=== PATIENT | male | born 1935 | race Caucasian/White ===

== ENCOUNTER 2017-04-16 15:54 | Observation (INO) ==
[2017-04-16] MEDS ORDERED: AZITHROMYCIN 500 MG in DEXTROSE 5% IN WATER 250 ML IV ONE (16:53)
--- NOTE | 2017-04-16 16:55 | Emergency Department Note ---
Weakness HPI - General Source: patient Mode of arrival: ambulatory Limitations: no limitations - History of Present Illness Associated symptoms: Reports: fever/chills, headaches, loss of appetite, myalgias, shortness of breath. Denies: chest pain, confusion, dark stools, diaphoresis, dysuria, nausea/vomiting, rash, syncope <Cecy Hu - Last Filed: 04/16/17 16:53> <German Cifuentes - Last Filed: 04/16/17 20:34> - General Chief complaint: Weakness Stated complaint: cough Time Seen by Provider: 04/16/17 16:07 - History of Present Illness HPI Narrative: 81-year-old male presents with a 2-1/2 day history of fever, chills, weakness, generally feeling poor, cough and shortness of breath. [facility] to [facility] today. They thought he had a bronchitis and were discharged him home with some antibiotics. However when he went to discharge him he said he was too weak to even go get a x-ray and so they were concerned and sent him here. His oxygen saturations are 87% on room air on his arrival. He is mildly tachypneic with a rate of 28 on arrival. He states he has been like this since sudden onset 2-1/ 2 days ago. No sore throat. No ear pain. Does feel like he has a mild headache and feels like he has had chills. Unknown fever. No nausea, vomiting , or diarrhea. No pedal edema. No home treatments (Cecy Hu) - Related Data Previous Rx's Medication Instructions Recorded Azithromycin [Zithromax] 250 mg PO DAILY #6 tab 03/23/17 Allergies Allergy/AdvReac Type Severity Reaction Status Date / Time FLU VACCINE Allergy Severe VERY SICK Uncoded 07/29/14 06:58 GRAIN Allergy Intermediate RASH, Uncoded 07/29/14 06:58 RUNNY NOSE NO KNOWN DRUG ALLERGIES Allergy Unknown NO KNOWN Uncoded 07/29/14 06:58 ALLERGIES Review of Systems All systems ED: reviewed and negative except as stated. <Cecy Hu - Last Filed: 04/16/17 16:53> Past Medical History - Past Medical History Source: other (She has a poor historian. We are trying to obtain old records from the [facility]) - Social History smoking status: Former smoker Alcohol use: Reports: None Drug use: Reports: none <Cecy Hu - Last Filed: 04/16/17 16:53> Physical Exam Limitations: no limitations General appearance: alert, in no apparent distress Head: atraumatic, normocephalic, normal inspection Eye: Present: normal appearance. Absent: conjunctival injection ENT: normal exam, normal oropharynx, mucous membranes moist, TM's normal bilaterally, normal external ear exam Neck: Present: normal inspection, trachea midline. Absent: tenderness, lymphadenopathy Chest: Present: normal inspection, symmetric chest wall rise Respiratory: Present: respiratory distress (Tachypneic with a rate of 28. No accessory muscle use.), wheezes (Faint expiratory wheezes in the bases bilaterally particularly worse on the right). Absent: accessory muscle use Cardiovascular: Present: regular rate, normal heart sounds Abdominal: Present: soft, normal bowel sounds. Absent: distention, tenderness Extremities: Present: normal inspection, normal capillary refill. Absent: pedal edema Neurological: Present: alert, oriented X3 Psychiatric: Present: normal affect, normal mood Skin: Present: warm, dry, intact, normal color <Cecy Hu - Last Filed: 04/16/17 16:53> Vital Signs Temperature 97.1 F 04/16/17 15:55 Pulse Rate 96 H 04/16/17 15:55 Respiratory Rate 22 04/16/17 15:55 Blood Pressure 141/83 04/16/17 15:55 Pulse Oximetry (%) 87 L 04/16/17 15:55 Temperature 99.2 F H 04/16/17 19:10 Pulse Rate 64 04/16/17 20:06 Respiratory Rate 18 04/16/17 20:06 Blood Pressure 90/71 04/16/17 19:10 Pulse Oximetry (%) 93 04/16/17 19:10 Weakness - Lab Data Result diagrams: 04/16/17 16:21 04/16/17 16:21 <MagdalenaCecy peralta - Last Filed: 04/16/17 16:53> - Lab Data Result diagrams: 04/16/17 16:21 04/16/17 16:21 <German Cifuentes - Last Filed: 04/16/17 20:34> - Lab Data Lab Results 0204/16/17 04/16/17 Range/Units 16:21 16:21 16:21 WBC 6.1 (4.5-11.0) K/mcL RBC 4.99 (4.50-5.90) M/mcL Hgb 15.9 (13.5-16.5) g/dL Hct 46.5 (41.0-55.0) % MCV 93.2 (80.0-100.0) fL MCH 32.0 (26.0-34.0) pg MCHC 34.3 (31.0-36.0) g/dL RDW 14.6 H (11.5-14.5) % Plt Count 137 L (140-440) K/mcL MPV 9.7 (7.4-10.4) fL Gran % 71.3 (38.0-78.0) % Lymph % (Auto) 17.7 (15.5-49.0) % Trinity % (Auto) 10.3 (1.0-12.0) % Eos % (Auto) 0.3 (0.0-7.0) % Baso % (Auto) 0.4 (0.0-2.0) % Gran # 4.4 (1.8-8.0) K/mcL Lymph # (Auto) 1.1 L (1.5-4.8) K/mcL Trinity # (Auto) 0.6 (0.1-0.9) K/mcL Eos # (Auto) 0 (0.0-0.7) K/mcL Baso # (Auto) 0 (0.0-0.3) K/mcL VBG Lactic Acid 1.6 (0.5-2.2) mmol/L Sodium 134 (133-145) mmol/L Potassium 4.1 (3.3-5.1) mmol/L Chloride 93 L (96-108) mmol/L Carbon Dioxide 25 (22-30) mmol/L Anion Gap 16.0 (8-16) BUN 13 (8-23) mg/dl Creatinine 1.0 (0.7-1.2) mg/dl GFR Calculation 70 Glucose 108 H (70-105) mg/dL Calcium 8.9 (8.6-10.4) mg/dl Total Bilirubin 0.6 (0.0-1.0) mg/dL AST 30 (0-37) U/l ALT 19 (0-40) U/l Alkaline Phosphatase 72 (39-117) U/L Troponin T (0-0.03) ng/ml Total Protein 7.5 (5.9-8.4) gm/dL Albumin 4.3 (3.2-5.2) gm/dL Globulin 3.2 (2.2-3.7) gm/dL Albumin/Globulin Ratio 1.3 (1.0-2.3) Procalcitonin (<0.10) ng/mL Influenza A (Rapid) Influenza B (Rapid) 04/16/17 04/16/17 04/16/17 Range/Units 16:21 17:48 18:35 WBC (4.5-11.0) K/mcL RBC (4.50-5.90) M/mcL Hgb (13.5-16.5) g/dL Hct (41.0-55.0) % MCV (80.0-100.0) fL MCH (26.0-34.0) pg MCHC (31.0-36.0) g/dL RDW (11.5-14.5) % Plt Count (140-440) K/mcL MPV (7.4-10.4) fL Gran % (38.0-78.0) % Lymph % (Auto) (15.5-49.0) % Trinity % (Auto) (1.0-12.0) % Eos % (Auto) (0.0-7.0) % Baso % (Auto) (0.0-2.0) % Gran # (1.8-8.0) K/mcL Lymph # (Auto) (1.5-4.8) K/mcL Trinity # (Auto) (0.1-0.9) K/mcL Eos # (Auto) (0.0-0.7) K/mcL Baso # (Auto) (0.0-0.3) K/mcL VBG Lactic Acid (0.5-2.2) mmol/L Sodium (133-145) mmol/L Potassium (3.3-5.1) mmol/L Chloride (96-108) mmol/L Carbon Dioxide (22-30) mmol/L Anion Gap (8-16) BUN (8-23) mg/dl Creatinine (0.7-1.2) mg/dl GFR Calculation Glucose (70-105) mg/dL Calcium (8.6-10.4) mg/dl Total Bilirubin (0.0-1.0) mg/dL AST (0-37) U/l ALT (0-40) U/l Alkaline Phosphatase (39-117) U/L Troponin T < 0.01 (0-0.03) ng/ml Total Protein (5.9-8.4) gm/dL Albumin (3.2-5.2) gm/dL Globulin (2.2-3.7) gm/dL Albumin/Globulin Ratio (1.0-2.3) Procalcitonin < 0.10 (<0.10) ng/mL Influenza A (Rapid) Presumed negative Influenza B (Rapid) Presumed negative Disposition <Cecy Hu - Last Filed: 04/16/17 16:53> Pt seen by CARE TECH/PA only: Yes <German Cifuentes - Last Filed: 04/16/17 20:34> Disposition: Xfer As Inpt ([facility]) Condition: Fair
[2017-04-16 17:02] LABS: Basophils # (Auto) 0 K/mcL (0.0-0.3); Basophils % (Auto) 0.4 % (0.0-2.0); Eosinophils # (Auto) 0 K/mcL (0.0-0.7); Eosinophils % (Auto) 0.3 % (0.0-7.0); Granulocytes % (Auto) 71.3 % (38.0-78.0); Lymphocytes # (Auto) 1.1 K/mcL (1.5-4.8); Lymphocytes % (Auto) 17.7 % (15.5-49.0); Mean Cell Volume 93.2 fL (80.0-100.0); Mean Corpuscular HGB Conc 34.3 g/dL (31.0-36.0); Monocytes # (Auto) 0.6 K/mcL (0.1-0.9); Monocytes % (Auto) 10.3 % (1.0-12.0); Platelet Count 137 K/mcL (140-440); RBC 4.99 M/mcL (4.50-5.90); Red Cell Distribution Width 14.6 % (11.5-14.5)
[2017-04-16] MEDS ORDERED: IPRATROPIUM/ALBUTEROL 3 ML AMPUL.NEB NEB ONE ×2 (17:10→20:01)
--- NOTE | 2017-04-16 17:12 | XRay Report ---
HISTORY: Reason for Exam:sob, weakness FINDINGS: there is a subtle lacelike pattern in the lung parenchyma bilaterally. This is most apparent superior and lateral to the right upper hilum. This has become more apparent since 12/24/11. This is probably due to mild pulmonary fibrosis and COPD. The lungs are not hyperinflated. There is no evidence of pneumonia, mass or congestive heart failure. The heart size is normal. IMPRESSION: Mild pulmonary fibrosis Interpreted and Authenticated by: Greg Orozco 04/16/17
[2017-04-16] MEDS ORDERED: ACETAMINOPHEN 325 MG TABLET PO ONE (17:19)
[2017-04-16 17:24] LABS: ALT/SGPT 19 U/l (0-40); Albumin 4.3 gm/dL (3.2-5.2); Albumin/Globulin Ratio 1.3 (1.0-2.3); Alkaline Phosphatase 72 U/L (39-117); Blood Urea Nitrogen 13 mg/dl (8-23)
[2017-04-16] MEDS ORDERED: LACTATED RINGERS 1,000 ML IV ONE ×3 (18:22→19:10)
[2017-04-16] MEDS ORDERED: NALOXONE HCL 0.4 MG/ML VIAL IV PRN (19:10)
[2017-04-16] MEDS ORDERED: ACETAMINOPHEN 325 MG TABLET PO PRN (19:10)
[2017-04-16] MEDS ORDERED: oxyCODONE/APAP 5/325MG TABLET PO PRN (19:10)
[2017-04-16] MEDS ORDERED: ONDANSETRON 4 MG/2 ML VIAL IV PRN (19:10)
[2017-04-16] MEDS ORDERED: LEVOFLOXACIN 750 MG/150 ML BAG IV ONE (19:45)
--- NOTE | 2017-04-16 19:52 | Internal Med History&Physical ---
Medical - H&P: HPI Patient information: Note initiated : 04/16/17 at 7:42 pm Service Date, if different from initiated Date: [] Patient: Michael Rodney a 81 y/o M admitted on 04/16/17 for cough. Chief Complaint: [] History of present illness: Mr. Rodney is a 81 year old Male with h/o asthma, presnts to the ER from [facility] for 2 day history of not feeling well, cough, shortness of breath and fatigue. The patient note he was feeling that he was coming down with something 2 days ago, thinks he may have caught it from the store where people around him were sick yesterday, he was feeling weak and tired, some dizziness, not feeling quite him self, he had shortness of breath and wheezing. He notes cough is with mild sputum production, whitish yellow, no blood, worse when he lies down. The patients condition worsened and he was seen at the [place] [facility] today, diagnosed with bronchitis and prescribed antibiotics. He was unfortunately too weak and was therefore sent to the ER for further evaluation The patient patient in the ER was noted to be hypoxic on presentation. labs normal, Chest x ray neg for pna, flu test neg, his had low bp, which was responding to fluids. Normal lactate. The patient was wheezing. The patient is being admitted to the hospital for further management. He denies headache, no dizziness, no hearing issues, no visual changes, no swallowing difficulities,no chest pain. he had mild nausea, no vomiting no abdominal pain, no gu symptoms, no skin rash, depression or joint pain or swelling. no edema feet. All systems: reviewed and no additional remarkable complaints except as stated ( as per HPI) Medical - H&P: PMH Medical history: HLD CVA Hypothyroidism Surgical history: cataract sx Pertinent family history: lost 2 sons to brain cancer. Social history: ex smoker many decades ago no etoh no thc Medical - H&P: Meds Home Medications Medication Instructions Recorded Confirmed Type Azithromycin [Zithromax] 250 mg PO DAILY #6 tab 03/23/17 Rx Allergies Allergy/AdvReac Type Severity Reaction Status Date / Time FLU VACCINE Allergy Severe VERY SICK Uncoded 07/29/14 06:58 GRAIN Allergy Intermediate RASH, Uncoded 07/29/14 06:58 RUNNY NOSE NO KNOWN DRUG ALLERGIES Allergy Unknown NO KNOWN Uncoded 07/29/14 06:58 ALLERGIES Medical - H&P: Exam - Constitutional Vitals: Temp Pulse Resp BP Pulse Ox 99.2 F H 74 13 90/71 93 04/16/17 19:10 04/16/17 19:10 04/16/17 19:10 04/16/17 19:10 04/16/17 19:10 Exam: GENERAL: The patient is a well-developed, well-nourished in no apparent distress. Is alert and oriented x3. VITAL SIGNS: Reviewed and as noted elsewhere. HEENT: Head is normocephalic and atraumatic. Extraocular muscles are intact. Pupils are equal, round, and reactive to light. Nares appeared normal. Mouth appears any without lesions. Mucous membranes are moist. NECK: Normal to inspection, Supple, No lymphadenopathy or thyromegaly. LUNGS: Air entry equal on both sides, suzy exp wheezing, no crackles, no rhonchi. HEART: Regular rate and rhythm normal, S1 and S2 heard, no Gallop, S3 or Rub Noted, No Gross murmur heard. ABDOMEN: Soft, nontender, and nondistended. Positive bowel sounds. No hepatosplenomegaly was noted. EXTREMITIES: No cyanosis, clubbing, rash, lesions or edema. NEUROLOGIC: Cranial nerves II through XII are grossly intact. Motor and Sensory System Grossly Intact PSYCHIATRIC: Normal affect, Normal Mood. Appropriate Behavior. SKIN: No ulceration or wounds noted, No jaundice, No rash noted. Medical - H&P: Reslt - Labs CBC & Chem 7: 04/16/17 16:21 04/16/17 16:21 Labs: Short CBC 04/16/17 Range/Units 16:21 WBC 6.1 (4.5-11.0) K/mcL Hgb 15.9 (13.5-16.5) g/dL Hct 46.5 (41.0-55.0) % Plt Count 137 L (140-440) K/mcL BMP 04/16/17 16:21 Sodium 134 Potassium 4.1 Chloride 93 L Carbon Dioxide 25 BUN 13 Creatinine 1.0 Glucose 108 H Calcium 8.9 Cardiac Enzymes 04/16/17 Range/Units 16:21 Troponin T < 0.01 (0-0.03) ng/ml Liver Function 04/16/17 Range/Units 16:21 Total Bilirubin 0.6 (0.0-1.0) mg/dL AST 30 (0-37) U/l ALT 19 (0-40) U/l Alkaline Phosphatase 72 (39-117) U/L Albumin 4.3 (3.2-5.2) gm/dL Medical - H&P: A/P - Narrative A/P Narrative: A/P Acute bronchitis: Acute hypoxic resp failure Acute asthma exacerbation Hypotension Influenza possible HLD Hypothyroidism Plan Admit to tele Oxygen to keep osat > 90 IV fluids, try to keep MAP > 65, Levophed if needed DUonebs and IV steroids for asthma trend labs, check procalcitonin. tamiflu resume levothyroxine DVT hep sq Diet cardiac Full code.
[2017-04-16] MEDS: IPRATROPIUM/ALBUTEROL 3 ML AMPUL.NEB NEB SCH ×2 (20:05→23:18)
[2017-04-16] MEDS: HEPARIN 5,000 UNIT/ML VIAL SQ SCH (20:26)
[2017-04-16] MEDS: methylPREDNISolone SOD SUCC 125 MG/2 ML VIAL IV SCH ×2 (20:26→22:26)
[2017-04-16] MEDS: FAMOTIDINE 20 MG TABLET PO SCH (20:26)
[2017-04-16] MEDS: OSELTAMIVIR PHOSPHATE 75 MG CAPSULE PO SCH (20:27)
--- NOTE | 2017-04-16 20:39 | Emergency Department Note ---
ED Note Addendum Note Addendum: Report was received from Cecy Hu and care was resumed by myself at 1800. Patient is alert and oriented 3. He is a poor historian of his past medical history, and only reports taking one medication. [place] records are currently being received to be reviewed. Patient's lung sounds are clear to auscultation with diminished bases bilaterally. CBC results show normal white blood count 6.1, hemoglobin normal at 15.9, and hematocrit normal 46.5. Patient does show slightly elevated RDW at work and 0.6 and lower platelets at 137. The remaining CBC is unremarkable. Lactic acid was normal at 1.6. CMP is remarkably well. Influenza A and B testing was negative. Patient remains hypoxic unable to maintain oxygen saturation greater than 90% on room air. Oxygen saturations have been decreasing below 87% without oxygen. Patient has been requiring 2 L of O2 via nasal cannula here in the emergency Department. Phone call placed for hospitalist, Dr. Chiu for hospital admission. Patient was admitted to medical floor.
[2017-04-16] MEDS: LEVOFLOXACIN 750 MG/150 ML BAG IV SCH (21:00)
[2017-04-17] MEDS: IPRATROPIUM/ALBUTEROL 3 ML AMPUL.NEB NEB SCH ×6 (02:45→22:56)
[2017-04-17] MEDS: methylPREDNISolone SOD SUCC 125 MG/2 ML VIAL IV SCH ×3 (05:36→21:47)
[2017-04-17 05:41] LABS: Basophils # (Auto) 0 K/mcL (0.0-0.3); Basophils % (Auto) 0.1 % (0.0-2.0); Eosinophils # (Auto) 0 K/mcL (0.0-0.7); Eosinophils % (Auto) 0.2 % (0.0-7.0); Granulocytes % (Auto) 82.3 % (38.0-78.0); Lymphocytes # (Auto) 0.8 K/mcL (1.5-4.8); Lymphocytes % (Auto) 13.4 % (15.5-49.0); Mean Cell Volume 91.6 fL (80.0-100.0); Mean Corpuscular HGB Conc 34.4 g/dL (31.0-36.0); Mean Corpuscular Hemoglobin 31.6 pg (26.0-34.0); Monocytes # (Auto) 0.2 K/mcL (0.1-0.9); Platelet Count 108 K/mcL (140-440); RBC 4.45 M/mcL (4.50-5.90); Red Cell Distribution Width 13.4 % (11.5-14.5)
[2017-04-17 05:51] LABS: ALT/SGPT 15 U/l (0-40); Albumin 3.5 gm/dL (3.2-5.2); Albumin/Globulin Ratio 1.3 (1.0-2.3); Alkaline Phosphatase 57 U/L (39-117); Bilirubin,Direct < 0.2 mg/dL (0.0-0.3); Blood Urea Nitrogen 13 mg/dl (8-23); Gamma Glutamyl Transpeptidase 32 U/L (8-61); Uric Acid 5.6 mg/dL (2.5-8.0)
--- NOTE | 2017-04-17 08:52 | XRay Report ---
HISTORY: Reason for Exam:sob FINDINGS: There is mild pulmonary fibrosis in both lungs. Lateral view shows an increased AP diameter of the chest. There is no evidence of pneumonia, mass or congestive heart failure. The heart size, mediastinum and kaide are normal. Patient has an old moderate wedge compression fracture at T8. The spine is osteoporotic. There has been no significant change since 04/16/17. IMPRESSION: Mild COPD with pulmonary fibrosis Interpreted and Authenticated by: Greg Orozco 04/17/17
[2017-04-17] MEDS: HEPARIN 5,000 UNIT/ML VIAL SQ SCH ×2 (09:16→21:44)
[2017-04-17] MEDS: FAMOTIDINE 20 MG TABLET PO SCH ×2 (09:16→21:44)
[2017-04-17] MEDS: OSELTAMIVIR PHOSPHATE 75 MG CAPSULE PO SCH ×2 (09:16→21:44)
--- NOTE | 2017-04-17 11:22 | Internal Med Progress Note ---
Medical - PN: Subj Patient information: Note initiated : 04/17/17 at 11:08 am Service Date, if different from initiated Date: [] Patient: Michael Rodney a 81 y/o M admitted on 04/16/17 for Cough/Hypoxic Resp Failure. Chief Complaint: [] Interval history: Mr. Rodney is a 81 year old Male with h/o asthma, presnts to the ER from [facility] for 2 day history of not feeling well, cough, shortness of breath and fatigue. The patient note he was feeling that he was coming down with something 2 days ago, thinks he may have caught it from the store where people around him were sick yesterday, he was feeling weak and tired, some dizziness, not feeling quite him self, he had shortness of breath and wheezing. He notes cough is with mild sputum production, whitish yellow, no blood, worse when he lies down. The patients condition worsened and he was seen at the [place] [facility] today, diagnosed with bronchitis and prescribed antibiotics. He was unfortunately too weak and was therefore sent to the ER for further evaluation The patient patient in the ER was noted to be hypoxic on presentation. labs normal, Chest x ray neg for pna, flu test neg, his had low bp, which was responding to fluids. Normal lactate. The patient was wheezing. The patient is being admitted to the hospital for further management. He denies headache, no dizziness, no hearing issues, no visual changes, no swallowing difficulties,no chest pain. he had mild nausea, no vomiting no abdominal pain, no gu symptoms, no skin rash, depression or joint pain or swelling. no edema feet. Apr 17 patient seen and examined, no acute overnight events, still has some cough and shortness of breath but feels much better compared to yesterday. She wishes to go home today, however, still is hypoxic during ambulation. Chest x-ray repeated no evidence of pneumonia Labs stable. Blood pressure stable Pertinent ROS: Denies headache, dizziness Denies chest pain, palpitations improving cough and shortness of breath Denies abdominal pain, nausea or vomiting. - Constitutional Vitals: Vital Signs Temp Pulse Resp BP Pulse Ox 98.0 F 60 16 123/75 92 04/17/17 10:53 04/17/17 10:53 04/17/17 10:53 04/17/17 10:53 04/17/17 10:53 Period Temp Pulse Resp BP Sys/[place] Pulse Ox Last 24 Hr 97.1 F-100.1 F 53-96 13-28 85-141/48-83 87-98 Intake and Output 04/16/17 04/17/17 04/17/17 21:59 05:59 13:59 Intake Total 2249 / 2249 360 / 360 480 / 480 Output Total 1300 / 1300 550 / 550 Balance 2249 / 2249 -940 / -940 -70 / -70 Weight 170 lb 14 oz Intake & Output: Intake & Output 04/16/17 04/17/17 04/17/17 21:59 05:59 13:59 Intake Total 2249 / 2249 360 / 360 480 / 480 Output Total 1300 / 1300 550 / 550 Balance 2249 / 2249 -940 / -940 -70 / -70 Weight 170 lb 14 oz Intake: IV 2249 / 2249 0 / 0 Zithromax 500 mg In Dextrose 5% 250 / 250 in Water 250 ml @ 250 mls/hr IV ONCE ONE Rx#:[id number] Lactated Ringers 1,000 ml @ 849 / 849 Wide Open IV BOLUS ONE Rx#: [id number] Oral 360 / 360 480 / 480 Output: Void Amount 1300 / 1300 550 / 550 Other: Meal Sandwhich Breakfast Percent of Meal Consumed 50% 100% Feeding Ability Independent Independent Stool Size Moderate Stool Color Brown Stool Consistency Normal for Patient Formed # Voids 1 # Bowel Movements 1 Exam: Constitutional; Afebrile, cooperative, alert, not in distress. Eyes- No icterus, , No periorbital swelling Ears- Ext ear normal, hearing normal to conversation. Neck- Midline trachea, supple Respiratory system: Air Entry equal on both sides, mild expiratory wheezing present, mild crackles at bases,not in respiratory distress CVS- Rate rhythm regular, S1,S2 heard, no gallop, no rub. Abdomen- Soft nontender abdomen, no organomegaly, no tenderness, no guarding or rigidity, [employer]- AOOx3, moving all extremities, no gross focal deficit noted. Medical - PN: Obj Da - Labs CBC & Chem 7: 04/17/17 03:50 04/17/17 03:50 Labs: Abnormal Lab Results 04/17/17 04/17/17 04/16/17 03:50 03:50 16:21 RBC 4.45 L Hct 40.8 L RDW Plt Count 108 L Gran % 82.3 H Lymph % (Auto) 13.4 L Lymph # (Auto) 0.8 L Chloride 93 L Glucose 188 H 108 H 04/16/17 16:21 RBC Hct RDW 14.6 H Plt Count 137 L Gran % Lymph % (Auto) Lymph # (Auto) 1.1 L Chloride Glucose Meds: Medications Acetaminophen (Tylenol) 650 mg PO Q6HP PRN PRN Reason: PAIN/FEVER > 101 Albuterol/Ipratropium (Duoneb) 3 ml NEB Q4HRT COUNTS INCLUDE 234 BEDS AT THE [facility] Last Admin: 04/17/17 07:00 Dose: 3 ml Famotidine (Pepcid) 20 mg PO BID COUNTS INCLUDE 234 BEDS AT THE [facility] Last Admin: 04/17/17 09:16 Dose: 20 mg Heparin Sodium (Porcine) (Heparin) 5,000 unit SQ Q12 COUNTS INCLUDE 234 BEDS AT THE [facility] Last Admin: 04/17/17 09:16 Dose: 5,000 unit Levofloxacin (Levaquin) 750 mg in 150 mls @ 100 mls/hr IV DAILY COUNTS INCLUDE 234 BEDS AT THE [facility] Last Admin: 04/16/17 21:00 Dose: Not Given Methylprednisolone Sodium Succinate (Solu-Medrol) 62.5 mg IV Q8 COUNTS INCLUDE 234 BEDS AT THE [facility] Last Admin: 04/17/17 05:36 Dose: 62.5 mg Naloxone HCl (Narcan) 0.1 mg IV Q2MIN PRN PRN Reason: Opiate Reversal Ondansetron HCl (Zofran) 4 mg IV Q4HP PRN PRN Reason: Nausea And Vomiting Oseltamivir Phosphate (Tamiflu) 75 mg PO BID COUNTS INCLUDE 234 BEDS AT THE [facility] Stop: 04/21/17 09:01 Last Admin: 04/17/17 09:16 Dose: 75 mg Oxycodone/Acetaminophen (Percocet 5-325 Mg) 1 tab PO Q4HP PRN PRN Reason: PAIN LEVEL 3-6 Sodium Chloride (Saline Flush) 10 ml IV Q8 COUNTS INCLUDE 234 BEDS AT THE [facility] Medical - PN: A/P - Time Spent With Patient Total time spent is greater than 50% in coordination of care (as documented) at patient's floor/unit and/or counseling patient: - Narrative A/P Narrative: A/P Acute bronchitis: Acute hypoxic resp failure Acute asthma exacerbation Hypotension Influenza possible HLD Hypothyroidism Plan Monitor on tele Oxygen to keep osat > 90 BP stable now DUonebs and IV steroids for asthma, still wheezing tamiflu resume levothyroxine for now does not take other home medications as per him. DVT hep sq Diet cardiac Full code. Medical - PN: Qual - VTE Deep Vein Thrombosis/Pulmonary Embolism Present on Admission: No
[2017-04-17] MEDS: 0.9 % SODIUM CHLORIDE 10 ML SYRINGE IV SCH ×3 (12:15→21:44)
[2017-04-17] MEDS: LEVOFLOXACIN 750 MG/150 ML BAG IV SCH (12:17)
[2017-04-18] MEDS: IPRATROPIUM/ALBUTEROL 3 ML AMPUL.NEB NEB SCH ×3 (03:26→11:32)
[2017-04-18] MEDS: 0.9 % SODIUM CHLORIDE 10 ML SYRINGE IV SCH ×4 (06:11→14:08)
[2017-04-18] MEDS: methylPREDNISolone SOD SUCC 125 MG/2 ML VIAL IV SCH ×2 (06:11→14:07)
[2017-04-18 06:13] LABS: ALT/SGPT 15 U/l (0-40); Albumin 3.7 gm/dL (3.2-5.2); Albumin/Globulin Ratio 1.4 (1.0-2.3); Alkaline Phosphatase 56 U/L (39-117); Basophils # (Auto) 0 K/mcL (0.0-0.3); Basophils % (Auto) 0.1 % (0.0-2.0); Bilirubin,Direct < 0.2 mg/dL (0.0-0.3); Blood Urea Nitrogen 20 mg/dl (8-23); Eosinophils # (Auto) 0 K/mcL (0.0-0.7); Eosinophils % (Auto) 0.4 % (0.0-7.0); Gamma Glutamyl Transpeptidase 29 U/L (8-61); Granulocytes % (Auto) 83.1 % (38.0-78.0); Lymphocytes % (Auto) 11.3 % (15.5-49.0); Mean Cell Volume 91.4 fL (80.0-100.0); Mean Corpuscular HGB Conc 34.1 g/dL (31.0-36.0); Mean Corpuscular Hemoglobin 31.2 pg (26.0-34.0); Monocytes # (Auto) 0.4 K/mcL (0.1-0.9); Monocytes % (Auto) 5.1 % (1.0-12.0); Platelet Count 116 K/mcL (140-440); Red Cell Distribution Width 13.4 % (11.5-14.5); Uric Acid 5.8 mg/dL (2.5-8.0)
[2017-04-18] MEDS: OSELTAMIVIR PHOSPHATE 75 MG CAPSULE PO SCH (09:02)
[2017-04-18] MEDS: FAMOTIDINE 20 MG TABLET PO SCH (09:02)
[2017-04-18] MEDS: HEPARIN 5,000 UNIT/ML VIAL SQ SCH (09:02)
[2017-04-18] MEDS: LEVOFLOXACIN 750 MG/150 ML BAG IV SCH (09:04)
--- NOTE | 2017-04-18 13:39 | Discharge Summary ---
Medical - DS: Prov Patient information: Note initiated : 04/18/17 at 1:35 pm Service Date, if different from initiated Date: [] Patient: Michael Rodney 81 y/o M admitted on 04/16/17 for Cough/Hypoxic Resp Failure. Chief Complaint: [] Date of admission: 04/16/17 19:09 Discharge date: 04/18/17 Primary care physician: Ab Funes Admitting clinician: Kaitlin Chiu Consults: 04/16/17 18:25 Consult to Physician [CONS] Stat Comment: Consulting Provider: Kaitlin Chiu Reason For Exam: Physician to Consult Discharging clinician: Kaitlin Chiu Medical - DS: Meds - Discharge Medications Prescriptions: Albuterol Sulfate [Proair Hfa] 2 puff IH Q4HP PRN #1 [email or web address] PRN Reason: Shortness Of Breath Or Wheezing Levofloxacin [Levaquin] 500 mg PO DAILY #5 tab Oseltamivir Phosphate [Tamiflu] 75 mg PO BID #8 cap predniSONE [Prednisone] 40 mg [facility] Active and Home Medications: Home Medications Aspirin [Aspirin EC] 81 mg PO DAILY 04/17/17 [History Confirmed 04/17/17 Last Taken 04/03/17 08:00] Atorvastatin [Lipitor] 10 mg PO HS 04/17/17 [History Confirmed 04/17/17 Last Taken Unknown] Furosemide [Lasix] 20 mg PO DAILY 04/17/17 [History Confirmed 04/17/17 Last Taken 04/10/17 08:00] Levothyroxine [Synthroid] 112 mcg PO DAILY 04/17/17 [History Confirmed 04/17/17 Last Taken 04/15/17 00:00] Lisinopril [Zestril] 5 mg PO DAILY 04/17/17 [History Confirmed 04/17/17 Last Taken Unknown] Valium 2 mg PO Q6HP PRN 04/17/17 [History Confirmed 04/17/17 Last Taken 08:00] Medical - DS: Hosp Hospital course: Mr. Rodney is a 81 year old Male with h/o asthma, [facility] for 2 day history of not feeling well, cough, shortness of breath and fatigue. The patient note he was feeling that he was coming down with something 2 days ago, thinks he may have caught it from the store where people around him were sick, since the day before admission he was feeling weak and tired, some dizziness, not feeling quite him self, he had shortness of breath and wheezing. He notes cough is with mild sputum production, whitish yellow, no blood, worse when he lies down. The patients condition worsened and he was seen at the [facility] today, diagnosed with bronchitis and prescribed antibiotics. He was unfortunately too weak and was therefore sent to the ER for further evaluation.The patient patient in the ER was noted to be hypoxic on presentation. labs normal, Chest x ray neg for pna, flu test neg, his had low bp, which was responding to fluids. Normal lactate. The patient was wheezing. The patient is being admitted to the hospital for further management. Acute bronchitis/ Possible influenza: patient was treated with levofloxacin and Tamiflu, patient responded to the treatment very well. At the time of discharge she was ambulatory, able to tolerate by mouth diet very well, and saturating well on room air. patient has a history of asthma according to past medical history however is not on any inhalers. May have reactive airway disease. I think he will benefit from a short course of prednisone as well as albuterol. the rest of the stay in the hospital was uneventful, patient is not taking a lot of his chronic home medications I have not made any changes to his home regimen Discharge diagnosis: acute bronchitis, - Time Spent with Patient Total time spent providing and/or coordinating discharge services: Greater than 30 minutes Medical - DS: Exam - Constitutional Vitals: Vital Signs Temp Pulse Pulse Resp BP BP BP 04/18/17 11:33 92 H 18 04/18/17 11:00 98.8 F 16 99/59 04/18/17 07:45 04/18/17 07:22 75 18 04/18/17 07:00 98.9 F 18 100/59 04/18/17 03:52 97.8 F 75 16 114/63 04/18/17 03:25 68 18 04/18/17 00:31 99.2 F H 77 18 103/65 04/17/17 22:58 72 18 04/17/17 22:26 98.8 F 76 18 121/68 04/17/17 20:00 98.9 F 78 18 103/71 02/22/18 19:44 76 04/17/17 18:51 86 18 04/17/17 15:30 98.9 F 18 96/56 04/17/17 15:24 72 18 Pulse Ox 04/18/17 11:33 04/18/17 11:00 91 04/18/17 07:45 90 04/18/17 07:22 04/18/17 07:00 90 04/18/17 03:52 92 04/18/17 03:25 04/18/17 00:31 93 04/17/17 22:58 93 04/17/17 22:26 92 04/17/17 20:00 92 04/17/17 19:44 91 04/17/17 18:51 04/17/17 15:30 95 04/17/17 15:24 Intake and Output 04/17/17 04/18/17 04/18/17 21:59 05:59 13:59 Intake Total 710 / 710 500 / 500 730 / 730 Output Total 950 / 950 950 / 950 775 / 775 Balance -240 / -240 -450 / -450 -45 / -45 Intake: IV 150 / 150 150 / 150 Oral 560 / 560 500 / 500 580 / 580 Output: Void Amount 950 / 950 950 / 950 775 / 775 Other: Meal Dinner Lunch Percent of Meal Consumed 100% 100% Feeding Ability Assist with Tray Set Up Independent Stool Size Moderate Moderate Stool Color Brown Stool Consistency Formed Normal for Patient # Voids 1 # Bowel Movements 1 1 Weight 170 lb 8 oz Additional comments: Constitutional; Afebrile, cooperative, alert, not in distress. Eyes- No icterus, , No periorbital swelling Ears- Ext ear normal, hearing normal to conversation. Neck- Midline trachea, supple Respiratory system: Air Entry equal on both sides, No crackles or wheezing, no rhonchi. CVS- Rate rhythm regular, S1,S2 heard, no gallop, no rub. Abdomen- Soft nontender abdomen, no organomegaly, no tenderness, no guarding or rigidity, [employer]- AOOx3, moving all extremities, no gross focal deficit noted. Medical - DS: Data Labs on day of discharge: Labs from last 24 hours 04/18/17 04/18/17 03:50 03:50 WBC 8.8 RBC 4.50 Hgb 14.1 Hct 41.2 MCV 91.4 MCH 31.2 MCHC 34.1 RDW 13.4 Plt Count 116 L MPV 10.1 Gran % 83.1 H Lymph % (Auto) 11.3 L [place] % (Auto) 5.1 Eos % (Auto) 0.4 Baso % (Auto) 0.1 Gran # 7.4 Lymph # (Auto) 1.0 L [place] # (Auto) 0.4 Eos # (Auto) 0 Baso # (Auto) 0 Sodium 142 Potassium 4.4 Chloride 102 Carbon Dioxide 26 Anion Gap 14.0 BUN 20 Creatinine 0.9 GFR Calculation 79 Glucose 159 H Uric Acid 5.8 Calcium 9.2 Phosphorus 2.9 Magnesium 2.2 Total Bilirubin 0.3 Direct Bilirubin < 0.2 GGT 29 AST 26 ALT 15 Alkaline Phosphatase 56 Lactate Dehydrogenase 200 Total Protein 6.4 Albumin 3.7 Globulin 2.7 Albumin/Globulin Ratio 1.4 Triglycerides 65 Preliminary micro results at discharge 04/16/17 16:43 Blood Culture - Preliminary Blood 04/16/17 16:21 Blood Culture - Preliminary Blood Medical - DS: A/P - Patient/Caregiver Discharge Instructions Activity: as per physical therapy, increase activity as tolerated Diet: Regular Diet Additional Instructions: take antibiotics, levofloxacin for 4 more days Tamiflu for 4 more days prednisone for 4 more days with food and/or milk Take albuterol inhaler 2 puffs every 4 hours as needed for shortness of breath and/or wheezing. Go to the emergency room if worsening shortness of breath, fever, chest pain or any other acute concerns Take probiotics while you are on antibiotics Follow-up with your primary care provider in one week - Follow up Plan Follow up with: Ethel Nixon DO [Physician] - 04/25/17 11:00 am (You have a one time post hospital follow up appointment, please arrive at 10:45.) Disposition: Home, Self-Care Prognosis: Fair Rehab Potential: Fair I certify that the patient requires SNF services: No Overall status at discharge: patient is progressing back to baseline Medical - DS: Qual - VTE Deep Vein Thrombosis/Pulmonary Embolism Present on Admission: No
== END 2017-04-18 14:45 | disposition home or self-care (01) ==
LOC: ED 15:54 → ICU 15:54
PROVIDERS: ADMIT Internal Medicine; ATTEND Internal Medicine